=== PATIENT | male | born 1985 | race Caucasian/White ===

== ENCOUNTER 2016-09-28 02:47 | Emergency (ER) | payer MEDICAID ==
[2016-09-28] MEDS ORDERED: ACETAMINOPHEN 325 MG TABLET PO ONE (03:25)
[2016-09-28] MEDS: ACETAMINOPHEN 325 MG TABLET PO STA (03:35)
== END 2016-09-28 06:44 | disposition home or self-care (01) ==
DX: J06.9 Acute upper respiratory infection, unspecified (principal); B97.89 Other viral agents as the cause of diseases classified elsewhere; Z87.01 Personal history of pneumonia (recurrent); G80.9 Cerebral palsy, unspecified; Z99.3 Dependence on wheelchair
CPT/HCPCS: 71010; 87275; 87276; 99284; A9270

== ENCOUNTER 2016-10-05 00:35 | Inpatient (IN) | payer MEDICAID ==
[2016-10-05] MEDS ORDERED: IPRATROPIUM/ALBUTEROL 3 ML NEB INH ONE (01:03)
[2016-10-05] MEDS ORDERED: SODIUM CHLORIDE 0.9% 1,000 ML IV ONE (01:33)
[2016-10-05] MEDS ORDERED: IPRATROPIUM/ALBUTEROL 3 ML NEB INH STA (01:51)
[2016-10-05] MEDS ORDERED: SODIUM CHLORIDE 0.9% 1,000 ML IV STA (02:28)
[2016-10-05] MEDS ORDERED: ALBUTEROL NEB 2.5 MG/3 ML INH PRN (03:01)
[2016-10-05] MEDS ORDERED: PROCHLORPERAZINE 10 MG/2 ML VIAL IVP PRN (03:01)
[2016-10-05] MEDS ORDERED: AMPICILLIN/SULBACTAM 3 GM in SODIUM CHLORIDE 0.9% MINIBAG 100 ML IV STA (03:02)
[2016-10-05] MEDS ORDERED: diphenhydrAMINE INJ 50 MG/ML VIAL IVP PRN (04:02)
[2016-10-05] MEDS: DEXTROSE 5% 1,000 ML IV SCH ×2 (05:22→17:17)
[2016-10-05] MEDS: POTASSIUM CHLOR 10 MEQ/100 ML 100 ML IV SCH ×4 (05:33→08:32)
[2016-10-05] MEDS: ACETAMINOPHEN 325 MG TABLET PO PRN (06:04)
[2016-10-05] MEDS: BACLOFEN 10 MG TABLET PO SCH ×2 (06:04→15:01)
[2016-10-05] MEDS: SODIUM CHLORIDE FLUSH 0.9% 10 ML SYRINGE IVP SCH ×2 (06:05→15:04)
[2016-10-05] MEDS ORDERED: OXYMETAZOLINE NASAL SPRAY NAS ONE (06:25)
[2016-10-05] MEDS: OXYMETAZOLINE NASAL SPRAY NAS PRN (06:29)
[2016-10-05] MEDS: INSULIN ASPART 300 UNIT/3 ML PEN SUBQ SCH ×2 (08:44→14:38)
[2016-10-05] MEDS: AMPICILLIN/SULBACTAM 3 GM in SODIUM CHLORIDE 0.9% MINIBAG 100 ML IV SCH ×3 (08:45→21:43)
[2016-10-05] MEDS: ENOXAPARIN 40 MG/0.4 ML SYRINGE SUBQ SCH (08:46)
[2016-10-05] MEDS: SACCHAROMYCES BOULARDII 250 MG CAPSULE PO SCH ×2 (08:46→17:10)
[2016-10-05] MEDS ORDERED: A & D OINTMENT 5 GM PACKET TOP ONE (08:57)
[2016-10-05] MEDS ORDERED: PHENOL THROAT SPRAY 177 ML MM PRN (09:26)
[2016-10-05] MEDS ORDERED: POTASSIUM CHLORIDE 20 MEQ/15 ML UDC PO ONE (11:30)
[2016-10-05] MEDS ORDERED: CALCIUM GLUCONATE 2,000 MG in SODIUM CHLORIDE 0.9% 100ML 100 ML IV ONE (12:30)
[2016-10-05] MEDS: guaiFENesin/DEXTROMETHORPHAN 10 ML UDC PO PRN (12:37)
[2016-10-05] MEDS: POLYETHYLENE GLYCOL 3350 17 GM PACKET PO SCH (15:00)
[2016-10-05] MEDS ORDERED: CALCIUM GLUCONATE 1,000 MG in SODIUM CHLORIDE 0.9% 50 ML IV ONE (18:34)
[2016-10-05] MEDS ORDERED: POTASSIUM CHLORIDE 20 MEQ TABLET PO SCH (20:27)
[2016-10-05] MEDS ORDERED: NEUTRA-PHOS 250 MG TABLET PO SCH ×2 (20:33→21:05)
[2016-10-06] MEDS ORDERED: ACETAMINOPHEN 1,000 MG/100 ML 100 ML IV ONE (01:22)
[2016-10-06] MEDS: BACLOFEN 10 MG TABLET PO SCH ×4 (01:39→21:32)
[2016-10-06] MEDS: ACETAMINOPHEN 325 MG TABLET PO PRN (01:45)
[2016-10-06] MEDS: SODIUM CHLORIDE FLUSH 0.9% 10 ML SYRINGE IVP SCH ×4 (01:54→21:32)
[2016-10-06] MEDS ORDERED: NEUTRA-PHOS 250 MG TABLET PO SCH (03:00)
[2016-10-06] MEDS: AMPICILLIN/SULBACTAM 3 GM in SODIUM CHLORIDE 0.9% MINIBAG 100 ML IV SCH ×2 (04:00→08:06)
[2016-10-06] MEDS: OXYMETAZOLINE NASAL SPRAY NAS PRN (04:45)
[2016-10-06] MEDS: SACCHAROMYCES BOULARDII 250 MG CAPSULE PO SCH ×2 (07:59→18:08)
[2016-10-06] MEDS: POLYETHYLENE GLYCOL 3350 17 GM PACKET PO SCH (08:06)
[2016-10-06] MEDS: ENOXAPARIN 40 MG/0.4 ML SYRINGE SUBQ SCH (08:06)
[2016-10-06] MEDS ORDERED: PIPERACILLIN/TAZOBACTAM 3.375 GM in SODIUM CHLORIDE 0.9% MINIBAG 100 ML IV ONE (10:00)
[2016-10-06] MEDS: LORazepam 2 MG/ML SYRINGE IVP PRN ×2 (11:39→21:30)
[2016-10-06] MEDS: ACETAMINOPHEN 160 MG/5 ML SUSP UDC PO PRN (12:14)
[2016-10-06] MEDS: SODIUM CHLORIDE 0.9% 1,000 ML IV ONE ×2 (12:41→12:46)
[2016-10-06] MEDS: PIPERACILLIN/TAZOBACTAM 3.375 GM in SODIUM CHLORIDE 0.9% MINIBAG 100 ML IV SCH ×2 (13:09→20:41)
[2016-10-06] MEDS: SODIUM CHLORIDE 0.45% 1,000 ML IV SCH ×2 (13:53→21:38)
[2016-10-06] MEDS ORDERED: A & D OINTMENT 5 GM PACKET TOP PRN (19:15)
[2016-10-07] MEDS: OXYMETAZOLINE NASAL SPRAY NAS PRN ×2 (00:34→21:41)
[2016-10-07] MEDS: LORazepam 2 MG/ML SYRINGE IVP PRN ×3 (03:12→23:38)
[2016-10-07] MEDS: PIPERACILLIN/TAZOBACTAM 3.375 GM in SODIUM CHLORIDE 0.9% MINIBAG 100 ML IV SCH ×3 (04:56→21:40)
[2016-10-07] MEDS: SODIUM CHLORIDE 0.45% 1,000 ML IV SCH (05:44)
[2016-10-07] MEDS: BACLOFEN 10 MG TABLET PO SCH ×3 (05:51→23:10)
[2016-10-07] MEDS: SODIUM CHLORIDE FLUSH 0.9% 10 ML SYRINGE IVP SCH ×3 (05:51→21:43)
[2016-10-07] MEDS ORDERED: POTASSIUM CHLORIDE 20 MEQ/15 ML UDC PO ONE (06:07)
[2016-10-07] MEDS: NEUTRA-PHOS 250 MG TABLET PO SCH ×2 (06:32→08:00)
[2016-10-07] MEDS: SODIUM CHLORIDE FLUSH 0.9% 10 ML SYRINGE IVP PRN (07:40)
[2016-10-07] MEDS: SACCHAROMYCES BOULARDII 250 MG CAPSULE PO SCH ×2 (07:58→19:49)
[2016-10-07] MEDS: ENOXAPARIN 40 MG/0.4 ML SYRINGE SUBQ SCH (08:01)
[2016-10-07] MEDS: POLYETHYLENE GLYCOL 3350 17 GM PACKET PO SCH (08:01)
[2016-10-07] MEDS: ACETAMINOPHEN 160 MG/5 ML SUSP UDC PO PRN ×2 (09:25→23:39)
[2016-10-07] MEDS: guaiFENesin/DEXTROMETHORPHAN 10 ML UDC PO PRN ×2 (09:28→19:50)
[2016-10-07] MEDS: ONDANSETRON 4 MG/2 ML VIAL IVP PRN (14:26)
[2016-10-07] MEDS ORDERED: MIN OIL/DIMETHICON/COCONUT OIL 92 GM TUBE TOP ONE (21:18)
[2016-10-08] MEDS: PIPERACILLIN/TAZOBACTAM 3.375 GM in SODIUM CHLORIDE 0.9% MINIBAG 100 ML IV SCH ×2 (05:44→13:03)
[2016-10-08] MEDS: SODIUM CHLORIDE FLUSH 0.9% 10 ML SYRINGE IVP SCH ×3 (05:46→21:31)
[2016-10-08] MEDS: BACLOFEN 10 MG TABLET PO SCH ×3 (05:46→21:30)
[2016-10-08] MEDS ORDERED: POTASSIUM CHLORIDE 20 MEQ/15 ML UDC PO ONE (07:00)
[2016-10-08] MEDS: SACCHAROMYCES BOULARDII 250 MG CAPSULE PO SCH ×2 (08:16→17:07)
[2016-10-08] MEDS: ENOXAPARIN 40 MG/0.4 ML SYRINGE SUBQ SCH (08:16)
[2016-10-08] MEDS: POLYETHYLENE GLYCOL 3350 17 GM PACKET PO SCH (08:17)
[2016-10-08] MEDS: ACETAMINOPHEN 160 MG/5 ML SUSP UDC PO PRN ×3 (08:17→23:39)
[2016-10-08] MEDS: LORazepam 2 MG/ML SYRINGE IVP PRN (09:27)
[2016-10-08] MEDS: SODIUM CHLORIDE FLUSH 0.9% 10 ML SYRINGE IVP PRN (09:27)
[2016-10-08] MEDS: guaiFENesin/DEXTROMETHORPHAN 10 ML UDC PO PRN ×2 (12:35→18:55)
[2016-10-08] MEDS: CLINDAMYCIN 150 MG CAPSULE PO SCH ×2 (17:07→23:40)
[2016-10-08] MEDS: LORazepam 0.5 MG TABLET PO PRN ×2 (17:27→21:36)
[2016-10-08] MEDS: SODIUM CHLORIDE 0.9% 1,000 ML IV SCH (21:30)
[2016-10-09] MEDS: ONDANSETRON 4 MG/2 ML VIAL IVP PRN (00:16)
[2016-10-09] MEDS: ACETAMINOPHEN 160 MG/5 ML SUSP UDC PO PRN (03:34)
[2016-10-09] MEDS: CLINDAMYCIN 150 MG CAPSULE PO SCH ×3 (06:09→17:46)
[2016-10-09] MEDS: BACLOFEN 10 MG TABLET PO SCH ×3 (06:09→21:46)
[2016-10-09] MEDS: SODIUM CHLORIDE FLUSH 0.9% 10 ML SYRINGE IVP SCH ×3 (06:15→21:42)
[2016-10-09] MEDS: LORazepam 0.5 MG TABLET PO PRN ×2 (06:27→10:23)
[2016-10-09] MEDS: POLYETHYLENE GLYCOL 3350 17 GM PACKET PO SCH (07:52)
[2016-10-09] MEDS ORDERED: POTASSIUM PHOSPHATE 15 MMOL in SODIUM CHLORIDE 0.9% 250 ML IV ONE (08:00)
[2016-10-09] MEDS ORDERED: POTASSIUM CHLORIDE 20 MEQ/15 ML UDC PO ONE (08:00)
[2016-10-09] MEDS: ENOXAPARIN 40 MG/0.4 ML SYRINGE SUBQ SCH (08:17)
[2016-10-09] MEDS: SODIUM CHLORIDE 0.9% 1,000 ML IV SCH ×2 (08:17→17:39)
[2016-10-09] MEDS: SACCHAROMYCES BOULARDII 250 MG CAPSULE PO SCH ×2 (08:17→17:45)
[2016-10-09] MEDS ORDERED: levoFLOXacin 250 MG TABLET PO SCH (09:00)
[2016-10-09] MEDS ORDERED: MIN OIL/DIMETHICON/COCONUT OIL 92 GM TUBE TOP ONE (10:30)
[2016-10-09] MEDS: guaiFENesin/DEXTROMETHORPHAN 10 ML UDC PO PRN (13:05)
[2016-10-09] MEDS ORDERED: MIDAZOLAM 2 MG/2 ML VIAL IVP ONE (13:28)
[2016-10-09] MEDS ORDERED: DEXAMETHASONE 4 MG/ML VIAL IVP ONE (13:28)
[2016-10-09] MEDS ORDERED: METOCLOPRAMIDE 10 MG/2 ML VIAL IVP ONE (13:28)
[2016-10-09] MEDS ORDERED: SUCCINYLCHOLINE 200 MG/10 ML VIAL IVP ONE (13:28)
[2016-10-09] MEDS ORDERED: LIDOCAINE-MPF 2% 5 ML VIAL IM ONE (13:28)
[2016-10-09] MEDS ORDERED: PROPOFOL 200 MG/20 ML VIAL IVP ONE (13:28)
[2016-10-09] MEDS ORDERED: PHENYLEPHRINE 50 MG/5 ML VIAL IV ONE (13:28)
[2016-10-09] MEDS ORDERED: fentaNYL 100 MCG/2 ML VIAL IVP ONE (13:28)
[2016-10-09] MEDS ORDERED: ONDANSETRON 4 MG/2 ML VIAL IVP ONE (13:28)
[2016-10-09] MEDS ORDERED: LACTATED RINGERS 1,000 ML IV ONE ×2 (14:06→15:02)
[2016-10-09] MEDS ORDERED: LIDOCAINE 1% 50 ML MDV SUBQ ONE (14:55)
[2016-10-09] MEDS ORDERED: ACETAMINOPHEN 1,000 MG/100 ML 100 ML IV ONE (15:30)
[2016-10-09] MEDS: CLINDAMYCIN 600 MG/50 ML 50 ML IV SCH ×2 (18:58→23:55)
[2016-10-09] MEDS: LORazepam 2 MG/ML SYRINGE IVP PRN (21:42)
[2016-10-10] MEDS: LORazepam 2 MG/ML SYRINGE IVP PRN (00:53)
[2016-10-10] MEDS: CLINDAMYCIN 600 MG/50 ML 50 ML IV SCH ×2 (05:41→12:25)
[2016-10-10] MEDS: SODIUM CHLORIDE 0.9% 1,000 ML IV SCH (05:42)
[2016-10-10] MEDS: SODIUM CHLORIDE FLUSH 0.9% 10 ML SYRINGE IVP SCH ×3 (07:52→22:27)
[2016-10-10] MEDS: SACCHAROMYCES BOULARDII 250 MG CAPSULE PO SCH ×2 (10:33→16:44)
[2016-10-10] MEDS: ENOXAPARIN 40 MG/0.4 ML SYRINGE SUBQ SCH (10:33)
[2016-10-10] MEDS: BACLOFEN 10 MG TABLET PO SCH ×3 (10:33→22:27)
[2016-10-10] MEDS: POLYETHYLENE GLYCOL 3350 17 GM PACKET PO SCH (10:34)
[2016-10-10] MEDS: ACETAMINOPHEN 160 MG/5 ML SUSP UDC PO PRN (10:34)
[2016-10-10] MEDS: CLINDAMYCIN 150 MG CAPSULE PO SCH (18:30)
[2016-10-10] MEDS: guaiFENesin/DEXTROMETHORPHAN 10 ML UDC PO PRN (22:27)
[2016-10-11] MEDS: LORazepam 2 MG/ML SYRINGE IVP PRN (00:10)
[2016-10-11] MEDS: CLINDAMYCIN 150 MG CAPSULE PO SCH ×3 (00:10→11:46)
[2016-10-11] MEDS: BACLOFEN 10 MG TABLET PO SCH (07:03)
[2016-10-11] MEDS: SODIUM CHLORIDE FLUSH 0.9% 10 ML SYRINGE IVP SCH (07:03)
[2016-10-11] MEDS: ACETAMINOPHEN 160 MG/5 ML SUSP UDC PO PRN (07:33)
[2016-10-11] MEDS: SACCHAROMYCES BOULARDII 250 MG CAPSULE PO SCH (07:34)
[2016-10-11] MEDS: POLYETHYLENE GLYCOL 3350 17 GM PACKET PO SCH (07:35)
[2016-10-11] MEDS: ENOXAPARIN 40 MG/0.4 ML SYRINGE SUBQ SCH (07:35)
[2016-10-11] MEDS ORDERED: ACETAMINOPHEN 160 MG/5 ML SUSP UDC PO PRN (07:37)
== END 2016-10-11 12:16 | disposition home health service (06) | DRG 871 ==
PROC: 0DH63UZ Insertion of Feeding Device into Stomach, Percutaneous Approach (ICD-10-PCS; principal; 2016-10-09 13:45)
DX: A41.01 Sepsis due to Methicillin susceptible Staphylococcus aureus (principal); J96.01 Acute respiratory failure with hypoxia; J15.211 Pneumonia due to Methicillin susceptible Staphylococcus aureus; E87.0 Hyperosmolality and hypernatremia; N17.9 Acute kidney failure, unspecified; G80.3 Athetoid cerebral palsy; E46 Unspecified protein-calorie malnutrition; R65.20 Severe sepsis without septic shock; E87.6 Hypokalemia; E83.39 Other disorders of phosphorus metabolism; E86.0 Dehydration; E87.8 Other disorders of electrolyte and fluid balance, not elsewhere classified; K22.8 Other specified diseases of esophagus; Z68.22 Body mass index [BMI] 22.0-22.9, adult; Z74.01 Bed confinement status

== ENCOUNTER 2016-10-15 11:38 | Outpatient (CLI) | payer MEDICAID | END 2016-10-15 11:39 | disposition home or self-care (01) | DX: E87.0 Hyperosmolality and hypernatremia (principal); J18.9 Pneumonia, unspecified organism ==

== ENCOUNTER 2016-10-15 12:35 | Outpatient (CLI) | payer MEDICAID | END 2016-10-15 12:36 | disposition home or self-care (01) | DX: J18.9 Pneumonia, unspecified organism (principal); E87.0 Hyperosmolality and hypernatremia ==

== ENCOUNTER 2016-11-16 15:07 | Emergency (ER) | payer MEDICAID ==
[2016-11-16] MEDS ORDERED: HYDROmorphone 1 MG/ML SYRINGE IVP STA ×2 (15:54→19:08)
[2016-11-16] MEDS ORDERED: ONDANSETRON 4 MG/2 ML VIAL IVP STA ×2 (15:54→18:29)
[2016-11-16] MEDS ORDERED: HYDROmorphone 1 MG/ML SYRINGE ONE ×2 (16:27→19:20)
[2016-11-16] MEDS ORDERED: ONDANSETRON 4 MG/2 ML VIAL ONE ×2 (16:27→18:37)
[2016-11-16] MEDS ORDERED: IOPAMIDOL-300 100 ML VIAL IVP ONE (17:33)
[2016-11-16] MEDS ORDERED: SODIUM CHLORIDE 0.9% 1,000 ML IV ONE (17:47)
[2016-11-16] MEDS ORDERED: MAGNESIUM CITRATE 296 ML BOTTLE JT STA (20:11)
[2016-11-16] MEDS ORDERED: KETOROLAC 60 MG/2 ML VIAL IVP STA (20:17)
[2016-11-16] MEDS ORDERED: KETOROLAC 30 MG/ML VIAL ONE (20:25)
[2016-11-16] MEDS ORDERED: MAGNESIUM CITRATE 296 ML BOTTLE ONE (20:25)
== END 2016-11-16 20:45 | disposition home or self-care (01) ==
DX: K59.01 Slow transit constipation (principal); R10.84 Generalized abdominal pain; D72.829 Elevated white blood cell count, unspecified; G80.9 Cerebral palsy, unspecified; Z93.4 Other artificial openings of gastrointestinal tract status; Z99.3 Dependence on wheelchair
CPT/HCPCS: 36415; 71010; 74177; 80053; 83690; 85025; 85610; 96361; 96374; 96375; 96376; 99284; 99285; A9270; J1170; Q9967

== ENCOUNTER 2017-12-27 13:01 | Outpatient (CLI) | payer MEDICAID ==
[2017-12-27 13:17] LABS: BASOPHILS # (AUTO) 0.1 10^3/uL (0.0-0.1); BASOPHILS % (AUTO) 0.9 %; EOSINOPHILS # (AUTO) 1.3 10^3/uL (0.0-0.7); EOSINOPHILS % (AUTO) 13.9 %; HGB - HEMOGLOBIN 15.9 g/dL (14.0-18.0); LYMPHOCYTES # (AUTO) 2.9 10^3/uL (1.5-3.5); LYMPHOCYTES % (AUTO) 30.9 %; MEAN CORPUSCULAR HGB CONC 34.3 g/dL (32.0-36.0); MEAN CORPUSCULAR VOLUME 90.5 fL (80.0-94.0); MEAN PLATELET VOLUME 8.3 fL (7.4-11.4); MONOCYTES # (AUTO) 1.1 10^3/uL (0.0-1.0); MONOCYTES % (AUTO) 11.2 %; NEUTROPHILS # (AUTO) 4.1 10^3/uL (1.5-6.6); NEUTROPHILS % (AUTO) 43.1 %; PLT - PLATELET COUNT 276 10^3/uL (130-450); RED BLOOD COUNT 5.11 10^6/uL (4.70-6.10); RED CELL DISTRIBUTION WIDTH 13.4 % (12.0-15.0); WHITE BLOOD COUNT 9.5 x10^3/uL (4.8-10.8)
[2017-12-27 13:39] LABS: ALBUMIN 4.3 g/dL (3.2-5.5); ALBUMIN/GLOBULIN RATIO 1.2 (1.0-2.2); ALKALINE PHOSPHATASE 82 IU/L (42-121); ALT ALANINE AMINOTRANSFERASE 25 IU/L (10-60); AST ASPARTATE AMINOTRANSFERASE 24 IU/L (10-42); BUN - BLOOD UREA NITROGEN 13 mg/dL (6-20); CALCIUM 9.4 mg/dL (8.5-10.3); CARBON DIOXIDE - CO2 23 mmol/L (21-32); CHLORIDE 103 mmol/L (101-111); CHOL/HDL RATIO 5.4 (<5.0); CHOLESTEROL 158 mg/dL; CREATININE 0.6 mg/dL (0.6-1.2); GFR - MDRD 155 (>89); GLUCOSE 99 mg/dL (70-100); HDL CHOLESTEROL 29 mg/dL; LDL CHOLESTEROL,CALCULATED 73 mg/dL; LDL/HDL RATIO 2.5 (<3.6); SODIUM 136 mmol/L (135-145); VLDL CHOLESTEROL 56 mg/dL
== END 2017-12-27 13:02 | disposition home or self-care (01) ==
LOC: LAB 13:01
PROVIDERS: ATTEND Nurse Practitioner Gerontology
DX: Z93.1 Gastrostomy status (principal); Z13.9 Encounter for screening, unspecified; E87.0 Hyperosmolality and hypernatremia
CPT/HCPCS: 36415; 80050; 80061; 83721

== ENCOUNTER 2019-09-23 13:52 | Outpatient (CLI) | payer MEDICAID | END 2019-09-23 13:53 | disposition critical access hospital (66) | LOC: EMS 13:52 | PROVIDERS: ATTEND Surgery | DX: T85.528A Displacement of other gastrointestinal prosthetic devices, implants and grafts, initial encounter (principal) | CPT/HCPCS: A0425; A0429; A0999 ==

== ENCOUNTER 2019-09-23 14:01 | Emergency (ER) | payer MEDICAID ==
[2019-09-23 14:12] VITALS: BP 145/101
--- NOTE | 2019-09-23 14:21 | ED Physician Documentation ---
History of Present Illness - Stated complaint Stated Complaint: DISLODGED FEEDING TUBE - Chief complaint Chief Complaint: General - History obtained from History obtained from: Family (mom), EMS - History of Present Illness Timing: Today (34-year-old gentleman with history of cerebral palsy, PEG tube dependence which came out just prior to arrival. Mom's not sure of the size.) Review of Systems Constitutional: denies: Fever, Chills GI: denies: Nausea, Vomiting, Diarrhea PD PAST MEDICAL HISTORY - Past Medical History Cardiovascular: None Respiratory: Pneumonia Endocrine/Autoimmune: None GI: None : Incontinence HEENT: None Psych: None Musculoskeletal: Scoliosis Derm: None - Past Surgical History Past Surgical History: Yes Ortho: Spine surgery, Other - Present Medications Home Medications: Ambulatory Orders Medication Instructions Recorded Confirmed Baclofen 20 mg PO TID 12/06/14 10/05/16 Clindamycin [Cleocin] 150 mg PO Q6HR #12 capsule 10/11/16 guaiFENesin/DEXTROMETHORPHAN 10 ml PO Q6HR PRN #1 udc 10/11/16 [Robitussin Dm] - Allergies Allergies/Adverse Reactions: Allergies Allergy/AdvReac Type Severity Reaction Status Date / Time No Known Drug Allergies Allergy Verified 11/16/16 15:23 - Social History Does the pt smoke?: No Smoking Status: Never smoker Does the pt drink ETOH?: No Does the pt have substance abuse?: No - Immunizations Immunizations are current?: Yes - POLST Patient has POLST: No PD ED PE NORMAL - Vitals Vital signs reviewed: Yes - General General: Other (Cooperative gentleman who is bedbound with cerebral palsy) - Abdomen Abdomen: Soft, Non tender Results - Vitals Vitals: Vital Signs - 24 hr 09/23/19 14:10 Temperature 36.8 C Heart Rate 92 Respiratory 18 Rate Blood Pressure 145/101 H O2 Saturation 96 Oxygen O2 Source Room air PD MEDICAL DECISION MAKING - ED course ED course: PEG tube was replaced at the bedside. Initially tried 24 since mom did not know the size but that did not go into easily, 22 went in pretty easily. Gastric juices were aspirated. Departure - Departure Disposition: 01 Home, Self Care Clinical Impression: Quadriplegic cerebral palsy, PEG tube malfunction Condition: Good Instructions: ED G Tube Replacement Comments: Follow-up with your primary care physician, return for new or worsening symptoms. Discharge Date/Time: 09/23/19 14:48
== END 2019-09-23 14:48 | disposition home or self-care (01) ==
LOC: EDUNIT# → ED 14:01
DX: K94.23 Gastrostomy malfunction (principal); G80.8 Other cerebral palsy
CPT/HCPCS: 43762

== ENCOUNTER 2021-02-11 08:00 | Outpatient (CLI) | payer MEDICAID ==
[2021-02-11 18:17] LABS: BASOPHILS # (AUTO) 0.1 10^3/uL (0.0-0.1); BASOPHILS % (AUTO) 0.8 %; EOSINOPHILS # (AUTO) 0.7 10^3/uL (0.0-0.7); EOSINOPHILS % (AUTO) 7.2 %; HGB - HEMOGLOBIN 15.8 g/dL (14.0-18.0); LYMPHOCYTES # (AUTO) 2.3 10^3/uL (1.5-3.5); LYMPHOCYTES % (AUTO) 25.8 %; MEAN CORPUSCULAR HGB CONC 32.9 g/dL (32.0-36.0); MEAN CORPUSCULAR VOLUME 91.3 fL (80.0-94.0); MEAN PLATELET VOLUME 11.2 fL (7.4-11.4); MONOCYTES % (AUTO) 11.6 %; NEUTROPHILS # (AUTO) 4.9 10^3/uL (1.5-6.6); NEUTROPHILS % (AUTO) 54.3 %; PLT - PLATELET COUNT 299 10^3/uL (130-450); RED BLOOD COUNT 5.26 10^6/uL (4.70-6.10); RED CELL DISTRIBUTION WIDTH 13.1 % (12.0-15.0)
[2021-02-11 18:43] LABS: ALBUMIN 4.4 g/dL (3.2-5.5); ALBUMIN/GLOBULIN RATIO 1.1 (1.0-2.2); ALKALINE PHOSPHATASE 88 IU/L (42-121); ALT ALANINE AMINOTRANSFERASE 19 IU/L (10-60); AST ASPARTATE AMINOTRANSFERASE 24 IU/L (10-42); BUN - BLOOD UREA NITROGEN 14 mg/dL (6-20); CALCIUM 9.5 mg/dL (8.5-10.3); CARBON DIOXIDE - CO2 24 mmol/L (21-32); CHLORIDE 105 mmol/L (101-111); CHOL/HDL RATIO 5.2 (<5.0); CHOLESTEROL 170 mg/dL; CREATININE 0.7 mg/dL (0.6-1.2); GFR - MDRD 127 (>89); GLUCOSE 91 mg/dL (70-100); HDL CHOLESTEROL 33 mg/dL; LDL CHOLESTEROL,CALCULATED 91 mg/dL; LDL/HDL RATIO 2.8 (<3.6); POTASSIUM 4.1 mmol/L (3.5-5.0); SODIUM 139 mmol/L (135-145); TOTAL PROTEIN 8.3 g/dL (6.7-8.2); TRIGLYCERIDES 229 mg/dL; VLDL CHOLESTEROL 46 mg/dL
[2021-02-11 18:52] LABS: THYROID STIMULATING HORMONE 1.73 uIU/mL (0.34-5.60)
== END 2021-02-11 23:59 | disposition home or self-care (01) ==
LOC: LAB.WCP 08:00
PROVIDERS: ATTEND Physician Assistant Medical
DX: Z00.00 Encounter for general adult medical examination without abnormal findings (principal); Z93.1 Gastrostomy status
CPT/HCPCS: 36415; 80050; 80061; 83721; 87070; 87181; 87205

== ENCOUNTER 2022-04-29 11:16 | Outpatient (CLI) | payer MEDICAID ==
[2022-04-29 11:42] LABS: CALCIUM 9.3 mg/dL (8.5-10.3); CREATININE 0.6 mg/dL (0.6-1.2); POTASSIUM 3.8 mmol/L (3.5-5.0)
== END 2022-04-29 11:17 | disposition home or self-care (01) ==
LOC: LAB 11:16
PROVIDERS: ATTEND Physician Assistant Medical
DX: E87.0 Hyperosmolality and hypernatremia (principal)
CPT/HCPCS: 36415; 80048

== ENCOUNTER 2023-03-29 10:32 | Outpatient (CLI) | payer MEDICAID ==
[2023-03-29 11:02] LABS: ALBUMIN 4.3 g/dL (3.2-5.5); ALBUMIN/GLOBULIN RATIO 1.3 (1.0-2.2); BILIRUBIN,TOTAL 0.5 mg/dL (0.2-1.0); CALCIUM 9.4 mg/dL (8.5-10.3); CREATININE 0.7 mg/dL (0.6-1.3); POTASSIUM 4.1 mmol/L (3.5-4.5); TOTAL PROTEIN 7.5 g/dL (6.4-8.9)
== END 2023-03-29 10:33 | disposition home or self-care (01) ==
LOC: LAB 10:32
PROVIDERS: ATTEND Physician Assistant Medical
DX: E87.0 Hyperosmolality and hypernatremia (principal); Z93.1 Gastrostomy status
CPT/HCPCS: 36415; 80053

== ENCOUNTER 2024-02-16 09:35 | Outpatient (CLI) | payer MEDICAID ==
[2024-02-16 09:54] LABS: BASOPHILS # (AUTO) 0.1 10^3/uL (0.0-0.1); BASOPHILS % (AUTO) 0.7 %; EOSINOPHILS # (AUTO) 0.7 10^3/uL (0.0-0.7); EOSINOPHILS % (AUTO) 8.2 %; HCT - HEMATOCRIT 47.4 % (42.0-52.0); HGB - HEMOGLOBIN 15.5 g/dL (14.0-18.0); LYMPHOCYTES # (AUTO) 2.4 10^3/uL (1.5-3.5); LYMPHOCYTES % (AUTO) 26.3 %; MEAN CORPUSCULAR HGB CONC 32.7 g/dL (32.0-36.0); MEAN CORPUSCULAR VOLUME 91.7 fL (80.0-94.0); MEAN PLATELET VOLUME 10.2 fL (7.4-11.4); MONOCYTES # (AUTO) 1.1 10^3/uL (0.0-1.0); MONOCYTES % (AUTO) 11.9 %; NEUTROPHILS # (AUTO) 4.8 10^3/uL (1.5-6.6); NEUTROPHILS % (AUTO) 52.6 %; PLT - PLATELET COUNT 263 10^3/uL (130-450); RED BLOOD COUNT 5.17 10^6/uL (4.70-6.10); RED CELL DISTRIBUTION WIDTH 12.6 % (12.0-15.0)
[2024-02-16 10:12] LABS: ALBUMIN 4.5 g/dL (3.2-5.5); ALBUMIN/GLOBULIN RATIO 1.5 (1.0-2.2); ALKALINE PHOSPHATASE 73 IU/L (42-121); ALT ALANINE AMINOTRANSFERASE 16 IU/L (10-60); AST ASPARTATE AMINOTRANSFERASE 16 IU/L (10-42); BILIRUBIN,TOTAL 0.7 mg/dL (0.2-1.0); BUN - BLOOD UREA NITROGEN 15 mg/dL (6-20); CALCIUM 9.6 mg/dL (8.5-10.3); CARBON DIOXIDE - CO2 25 mmol/L (21-32); CHLORIDE 104 mmol/L (101-111); CHOL/HDL RATIO 5.2 (<5.0); CHOLESTEROL 161 mg/dL; CREATININE 0.7 mg/dL (0.6-1.3); GFR - MDRD 125 (>89); GLUCOSE 94 mg/dL (74-104); HDL CHOLESTEROL 31 mg/dL; LDL CHOLESTEROL,CALCULATED 71 mg/dL; LDL/HDL RATIO 2.3 (<3.6); POTASSIUM 3.8 mmol/L (3.5-4.5); SODIUM 136 mmol/L (135-145); TOTAL PROTEIN 7.5 g/dL (6.4-8.9); TRIGLYCERIDES 294 mg/dL; VLDL CHOLESTEROL 59 mg/dL
[2024-02-16 10:23] LABS: THYROID STIMULATING HORMONE 3.82 uIU/mL (0.34-5.60)
== END 2024-02-16 09:36 | disposition home or self-care (01) ==
LOC: LAB 09:35
PROVIDERS: ATTEND Physician Assistant Medical
DX: Z00.00 Encounter for general adult medical examination without abnormal findings (principal)
CPT/HCPCS: 36415; 80050; 80061; 83721